=== PATIENT | male | born 1970 | race Caucasian/White ===

== ENCOUNTER 2018-02-25 07:35 | Observation (INO) ==
[2018-02-25] MEDS ORDERED: ASPIRIN PO ONE ×2 (07:49→09:27)
--- NOTE | 2018-02-25 08:12 | Diag Imaging Result Doc PS360 ---
EXAM: CHEST-2 VIEWS HISTORY: chest pain TECHNIQUE: Chest two views COMPARISON: 01/11/2013 FINDINGS: The lungs are well expanded. The heart is not enlarged. The vessels are not distended. There are no infiltrates. No pleural effusions. IMPRESSION: No acute abnormality. Electronically signed by Janusz Salcedo 02/25/2018 8:10 AM
[2018-02-25 08:16] LABS: BASO# 0.04 X1000 (0.0-0.2); BASO% 0.6 % (0.0-0.8); EOS% 2.8 % (0.0-10.0); HEMATOCRIT 48.4 % (42.0-52.0); HEMOGLOBIN 16.5 g/dL (14.0-18.0); IMM GRAN# 0.04 X1000 (0.0-0.04); IMM GRAN% 0.6 % (0.0-0.5); LYMPH# 1.81 X1000 (1.2-3.4); LYMPH% 25.5 % (20.5-51.1); MCH 27.9 PG (27-31); MCHC 34.1 g/dL (33-37); MCV 81.8 FL (81-99); MONO% 8.5 % (1.7-9.3); MPV 13.5 FL (7.4-10.4); NEUT# 4.41 X1000 (1.4-6.5); PLT 118 X1000 (130-400); RBC 5.92 XMIL (4.7-6.1); RDW 13.2 % (11.5-14.5)
[2018-02-25] MEDS ORDERED: LABETALOL IV ONE (08:17)
--- NOTE | 2018-02-25 08:19 | EKG Report ---
Test Performed on : 02/25/2018 07:47:05 AM Test Reason : chest pain Blood Pressure : / mmHG Vent. Rate : 088 BPM Atrial Rate : 088 BPM P-R Int : 164 ms QRS Dur : 086 ms QT Int : 348 ms P-R-T Axes : 051 -11 054 degrees QTc Int : 421 ms Normal sinus rhythm. Possible Left atrial enlargement T wave abnormality, consider anterior ischemia Abnormal ECG When compared with ECG of 25-FEB-2018 07:46, (Unconfirmed) No significant change was found Unconfirmed Result
[2018-02-25 08:31] LABS: PROTIME 11.7 Seconds (11.0-16.0)
[2018-02-25 08:34] LABS: AGAP 13; ALB/GLOB RATIO 2.2; ALBUMIN 4.9 g/dL (3.5-5.0); ALKALINE PHOSPHATASE 90 U/L (32-122); BUN 13 mg/dL (8-22); CALCIUM 9.7 mg/dL (8.8-10.2); CHLORIDE 101 mmol/L (98-107); CK PROFILE 74 U/L (24-204); COSMO 282; CREATININE 0.7 mg/dL (0.7-1.2); ESTIMATED GFR > 60; GLUCOSE 207 mg/dL (70-104); GOT 19 U/L (10-34); GPT 24 U/L (10-44); POTASSIUM 3.9 mmol/L (3.5-5.1); SODIUM 138 mmol/L (136-145); TCO2 24 mmol/L (25-35); TOTAL BILIRUBIN 1.25 mg/dL (0.20-1.00); TOTAL PROTEIN 7.1 g/dL (6.3-8.3)
[2018-02-25 08:36] LABS: INR 0.8
[2018-02-25] MEDS ORDERED: TYLENOL PO PRN (09:40)
[2018-02-25] MEDS ORDERED: NITROGLYCERIN SL PRN (09:40)
[2018-02-25] MEDS ORDERED: LOVENOX SUBQ SCH (09:45)
--- NOTE | 2018-02-25 10:03 | PROVIDER DOCUMENTATION ---
This chart was entered by Aleida Vasquez Scribe, acting as scribe for Sharon Garrido MD. HPI-Chest Pain - General Chief Complaint: Chest Pain Stated Complaint: CP,HIGH BP,DIABETIC Time Seen by Provider: 02/25/18 07:58 Source: patient Allergies/Adverse Reactions: Patient Allergies Allergy/AdvReac Type Severity Reaction Status Date / Time No Known Allergies Allergy Verified 02/25/18 07:45 - History of Present Illness-CP Nature of Presenting Problem: 47 yom presents to the ed with c/o intermittent non radiating chest pain with 2- 3x daily for 10-15 minute episodes and sts notices it most with exertion. pt sts has noted his BP being more elevated and c/o AC Location: reports: substernal Chest Pain Radiation: reports: no radiation Quality of Pain: reports: pressure Severity in ED: moderate Onset/Duration: 1 week ago Timing: gone now Context/Activities at Onset: reports: moderate activity Modifying Factors: worse with: exercise Associated Symptoms: reports: headache. denies: abdominal pain, back pain, dizziness, edema, fatigue, nausea, shortness of breath, vomiting, weakness Nitro Today/Relief: no nitro taken today Aspirin Treatment Today: 325 mg x 1, provided by ED Similar Symptoms Previously?: No Recently Seen Here or By Another Healthcare Provider: No Review of Systems - Adult - REVIEW OF SYSTEMS - ADULT Constitutional: denies: fever, fatique Eyes: reports: no symptoms reported Ears, Nose, Mouth & Throat: reports: no symptoms reported Cardiovascular: reports: see HPI, chest pain. denies: edema, orthopnea, syncope Respiratory: denies: cough, shortness of breath, wheezing Gastrointestinal: denies: abdominal pain, diarrhea, nausea, vomiting Genitourinary: reports: no symptoms reported Musculoskeletal: denies: back pain, neck pain Integumentary: reports: no symptoms reported Neurological: reports: headache/migraines. denies: dizziness/vertigo, loss of balance, numbness, paresthesia, seizure, slurred speech, syncope, tremors Psychiatric: reports: no symptoms reported Endocrine: reports: no symptoms reported Hematologic/Lymphatic: reports: no symptoms reported Allergic/Immunologic: reports: no symptoms reported All Other Systems: Reviewed and Negative Past History - Adult - PAST MEDICAL HISTORY-ADULT Review of Records: reports: Old Records Reviewed, Nursing Assessment Review, Medications Reviewed, Social history reviewed & non-contributory. Major Childhood Illnesses: reports: denies history Cardiovascular: reports: HTN, hyperlipidemia Respiratory: reports: denies history Gastrointestinal: reports: denies history Genitourinary: reports: denies history Musculoskeletal: reports: denies history Neurological: reports: denies history Endocrine/Immune: reports: Diabetes Other Conditions: reports: denies history - PRIOR SURGERIES/PROCEDURES Surgical/Procedure History: reports: none - IMMUNIZATION STATUS Childhood Immunizations: See Nurse Assessment Flu Vaccine: See Nurse Assessment - FAMILY HISTORY Family History: reviewed, not pertinent - SOCIAL HISTORY Smoking: denies Substance Use: denies Alcohol Use Frequency: never Living Situation: family Physical Exam-General - PHYSICAL EXAM-ADULT Initial Vital Signs Reviewed: Yes - CONSTITUTIONAL General Appearance: appears well, alert, no apparent distress - EYES Eyes: PERRL/EOMI, pink conjunctivae - HEAD, EARS, NOSE, MOUTH & THROAT HENMT: moist mucous membranes, normal ENT inspection - NECK Neck: non-tender, full range of motion, supple, normal inspection - RESPIRATORY Respiratory: chest non-tender, lungs clear, normal breath sounds - CARDIOVASCULAR Cardiovascular: normal peripheral pulses, regular rate, rhythm - GASTROINTESTINAL (ABDOMEN) Abdominal Exam: normal bowel sounds, non tender, soft - LYMPHATIC Lymphatic: no adenopathy - MUSCULOSKELETAL Back Exam: normal inspection, no CVA tenderness, no vertebral tenderness Extremity: normal range of motion, non-tender, normal gait - SKIN Integumentary: normal color, normal turgor - NEUROLOGIC Neurologic: grossly normal, no motor/sensory deficits - PSYCHIATRIC Psych/Mental Status: normal mood/affect, normal thought content, normal thought process, oriented x 3 Progress - PLAN OF CARE/RESULTS Progress/Plan/Lab Results: Vital Signs - 8 hr 02/25/18 07:40 02/25/18 07:49 Temperature 99.1 F 98.1 F Pulse Rate 83 67 Respiratory Rate 20 20 Blood Pressure 182/93 155/76 O2 Sat by Pulse Oximetry 100 98 Laboratory Results - last 24 hr 02/25/18 02/25/18 02/25/18 07:55 07:55 07:55 WBC 7.10 RBC 5.92 Hgb 16.5 Hct 48.4 MCV 81.8 MCH 27.9 MCHC 34.1 RDW Std Deviation 13.2 Plt Count 118 L MPV 13.5 H Immature Gran % (Auto) 0.6 H Neut % (Auto) 62.0 Lymph % (Auto) 25.5 [place] % (Auto) 8.5 Eos % (Auto) 2.8 Baso % (Auto) 0.6 Immature Gran # (Auto) 0.04 Neut # (Auto) 4.41 Lymph # (Auto) 1.81 [place] # (Auto) 0.60 H Eos # (Auto) 0.20 Baso # (Auto) 0.04 PT INR PTT (Actin FS) Sodium 138 Potassium 3.9 Chloride 101 Carbon Dioxide 24 L Anion Gap 13 BUN 13 Creatinine 0.7 Estimated GFR/1.73 m2 > 60 BUN/Creatinine Ratio 19 Glucose 207 H Calculated Osmolality 282 Calcium 9.7 Total Bilirubin 1.25 H AST 19 ALT 24 Alkaline Phosphatase 90 Creatine Kinase 74 Troponin T Xmo-I-Yoecerzlblh Pept 246 H Total Protein 7.1 Albumin 4.9 Globulin 2.2 Albumin/Globulin Ratio 2.2 02/25/18 02/25/18 07:55 07:55 WBC RBC Hgb Hct MCV MCH MCHC RDW Std Deviation Plt Count MPV Immature Gran % (Auto) Neut % (Auto) Lymph % (Auto) [place] % (Auto) Eos % (Auto) Baso % (Auto) Immature Gran # (Auto) Neut # (Auto) Lymph # (Auto) [place] # (Auto) Eos # (Auto) Baso # (Auto) PT 11.7 INR 0.80 PTT (Actin FS) 25.0 Sodium Potassium Chloride Carbon Dioxide Anion Gap BUN Creatinine Estimated GFR/1.73 m2 BUN/Creatinine Ratio Glucose Calculated Osmolality Calcium Total Bilirubin AST ALT Alkaline Phosphatase Creatine Kinase Troponin T < 0.010 Yca-R-Bdqufvhozkq Pept Total Protein Albumin Globulin Albumin/Globulin Ratio Orders Category Date Time Status Admit - [facility] Routine AdmDCTranf 02/25/18 09:40 Active Cardiac Monitoring DIRECTED Care 02/25/18 07:49 Active DVT/PE Risk Assess/Protocol [QM] ORDERED Care 02/25/18 09:40 Active FSBS/Accucheck Result AC + HS Care 02/25/18 09:40 Active Notify MD if DIRECTED Care 02/25/18 09:40 Active Nursing- MD Consult Request ROUTINE Care 02/25/18 09:37 Active Oxygen Therapy- ED Nursing DIRECTED Care 02/25/18 07:49 Active Saline Loc NOW Care 02/25/18 07:49 Active Update & Confirm Home Medicati ROUTINE Care 02/25/18 09:44 Active Vital Signs Order Q 4-HR ASSESS Care 02/25/18 09:40 Active Z-Document. for Tele Applied ORDERED Care 02/25/18 09:40 Active Physician/Provider Consults Routine Cons 02/25/18 09:37 Ordered NPO Diet 02/25/18 09:40 Active CHEST-2 VIEWS [RAD] Stat Exams 02/25/18 07:49 Completed US GB < RUQ (LIMITED) [US] Routine Exams 02/25/18 09:43 Ordered A1C HGB W EST AVG GLUCOSE [CHEM] Routine Lab 02/25/18 09:43 Ordered CBC WITH ELECTRONIC DIFF [HEME] Stat Lab 02/25/18 07:55 Completed CBC WITH NO DIFF [HEME] DAILY Lab 02/26/18 06:00 Ordered CBC WITH NO DIFF [HEME] DAILY Lab 02/27/18 06:00 Ordered CBC WITH NO DIFF [HEME] DAILY Lab 02/28/18 06:00 Ordered CBC WITH NO DIFF [HEME] DAILY Lab 03/01/18 06:00 Ordered CBC WITH NO DIFF [HEME] DAILY Lab 03/02/18 06:00 Ordered CK PROFILE [SP CHEM] Q6H Lab 02/25/18 09:45 Ordered CK PROFILE [SP CHEM] Q6H Lab 02/25/18 15:45 Ordered CK PROFILE [SP CHEM] Q6H Lab 02/25/18 21:45 Ordered CK PROFILE [SP CHEM] Stat Lab 02/25/18 07:55 Completed COMPREHENSIVE METABOLIC PANEL [CHEM] DAILY Lab 02/27/18 06:00 Ordered COMPREHENSIVE METABOLIC PANEL [CHEM] DAILY Lab 02/28/18 06:00 Ordered COMPREHENSIVE METABOLIC PANEL [CHEM] DAILY Lab 03/01/18 06:00 Ordered COMPREHENSIVE METABOLIC PANEL [CHEM] Stat Lab 02/25/18 07:55 Completed FOLATE Timed Lab 02/25/18 09:47 Ordered LIPID PROFILE W/CALC LDL [LIPIDS] Routine Lab 02/26/18 06:00 Ordered PRO B-NATRIURETIC PEPTIDE Stat Lab 02/25/18 07:55 Completed PROTIME WITH INR [COAG] Stat Lab 02/25/18 07:55 Completed PTT [COAG] Stat Lab 02/25/18 07:55 Completed TROPONIN T Q6H Lab 02/25/18 09:45 Ordered TROPONIN T Q6H Lab 02/25/18 15:45 Ordered TROPONIN T Q6H Lab 02/25/18 21:45 Ordered TROPONIN T Stat Lab 02/25/18 07:55 Completed TSH Timed Lab 02/25/18 09:47 Ordered VITAMIN B12 Timed Lab 02/25/18 09:47 Ordered Acetaminophen [Tylenol] Med 02/25/18 09:40 Active 650 mg PO Q6H PRN PRN Aspirin Med 02/26/18 09:00 Ordered 325 mg PO DAILY Aspirin Med 02/25/18 07:49 Discontinued 325 mg PO NOW ONE Aspirin Med 02/25/18 09:27 Discontinued 325 mg PO NOW ONE Enoxaparin [Lovenox] Med 02/25/18 09:45 Active 40 mg SUBQ Q24H Labetalol Med 02/25/18 08:17 Discontinued 20 mg IV NOW ONE Nitroglycerin Sl [Nitroglycerin] Med 02/25/18 09:40 Active 0.4 mg SL Q5M PRN PRN CP/SOB/Palp >45 yrs of Age Stat Oth 02/25/18 07:49 Ordered Telemetry [OM.EQ] Routine Oth 02/25/18 09:40 Active EKG [EKG] Stat Ther 02/25/18 07:49 Draft Echo Spec/Color Dop W/O Contra Routine Ther 02/25/18 09:40 Ordered Transfer/Admit Order [TRANSFER] Routine Transfer 02/25/18 09:38 Ordered heart score 5 pt sts had heart work up 3 years prior and all was normal Result Diagrams: 02/25/18 07:55 02/25/18 07:55 - REASSESSMENT Reassessment #1 Time Reassessed: 08:21 (pt on exam was back to baseline) Status: improving - EKG 1 Time of EKG reading by physician:: 07:47 EKG Read and Signed by:: Sharon Jordan EKG Interpretation (*Must complete 3 of following elements*): Abnormal Rate: 88 Rhythm: nsr [place]: normal QRS: normal, other (possible left atrial enlargement) Prior EKG Comparison: no prior EKG Comments: t wave abnormality, consider anrterior ischemia, T wave inversion V2- V4. - XRAY 1 XRAY: Bilateral XRAY Study: Chest (EXAM: CHEST-2 VIEWS HISTORY: chest pain TECHNIQUE: Chest two views COMPARISON: 01/11/2013 FINDINGS: The lungs are well expanded. The heart is not enlarged. The vessels are not distended. There are no infiltrates. No pleural effusions. IMPRESSION: No acute abnormality. Electronically signed by Janusz Salcedo 02/25/2018 8:10 AM 02/25/18 0810 Interpreting Physician: Janusz Salcedo MD Dictated Date/Time: 02/25/18 0809 cc: Shantel Neal MD; Lj Nunez MD) - CONSULTS/PCP/HOSPITALIST Notification #1 *Consult/PCP/Hospitalist*: [facility] dr sood Time Discussed: 08:16 (dr sood sts call his office) Reason/Comments: phone consult #2 Consult: [facility] sood office Time Discussed: 08:34 Reason/Comments: will send an ekg from office by fax #3 Consult: hospitalistdr [place] Time Discussed: 09:16 Reason/Comments: chest pain Consult Disposition: Admit (ACCEPTED.) Departure - Departure Date of Disposition Decision: 02/25/18 Time of Disposition Decision: 09:16 DIAGNOSIS: T wave inversion in EKG Chest pain Qualifiers: Chest pain type: unspecified Qualified Code(s): R07.9 - Chest pain, unspecified Disposition: ADMITTED INPATIENT 09 Certified Medical Emergency: Emergent Condition: Stable Referrals and Follow-Ups: Lj Nunez MD [Primary Care Provider] - - Critical Care Note This patient required my direct & personal management of CC.: No Attestation - Physician/ ANA Attestation Patient care was provided by Advanced Practice Provider:: No The physician spent face to face time with patient:: Yes Advanced Practice Provider documentation review:: Supervising physician onsite and consulted in the evaluation and care of this patient. The physician did have a face to face encounter with the patient. This chart was documented by the indicated scribe, (Aleida Vasquez Scribe) and accurately reflects the services I performed and decisions made by me, Sharon Garrido MD, as attested by the provider's signature.
--- NOTE | 2018-02-25 10:25 | Diag Imaging Result Doc PS360 ---
EXAM: US GB < RUQ (LIMITED) HISTORY: possible cholecystitis TECHNIQUE: Right upper quadrant ultrasound COMPARISON: None. FINDINGS: Normal pancreas. No abdominal aortic aneurysm. Normal inferior vena cava. No focal hepatic abnormality. No ascites in the right upper quadrant. Normal right kidney. No hydronephrosis. Normal gallbladder. No stones. The gallbladder wall is not thickened. No pericholecystic fluid. Common bile duct measures 4 mm. IMPRESSION: Normal right upper quadrant ultrasound. Electronically signed by Janusz Salcedo 02/25/2018 10:21 AM
--- NOTE | 2018-02-25 10:26 | HISTORY AND PHYSICAL ---
PRIMARY CARE PHYSICIAN: Dr. Lj Nunez. CHIEF COMPLAINT: Chest pain. HISTORY OF PRESENT ILLNESS: Mr. Simons is a 47-year-old male with a history of diabetes mellitus type 2, hypertension, hyperlipidemia, and nonobstructive coronary artery disease who presents to the ER with 2 weeks of chest pain. His symptoms are actually somewhat vague. He reports chest pain at random times during the day. However, over the past few days, he has noticed some epigastric midsternal pain after eating and 3 days ago he did have some exertional chest pain, but otherwise the pain comes on at random times, is mid sternal, sometimes wrapping across the entirety of the anterior chest and nonradiating in nature. He describes more of a squeezing-type sensation which is not associated with shortness of breath, nausea, vomiting, or diaphoresis. Mr. Simons does have a history of coronary artery disease. In 2014 , he had a CT of the mediastinum with calcium scoring that showed moderate coronary artery calcification most extensive in the circumflex artery. He also had a stress test at that time which did not show any ischemia. However, when he came into the ER today, he had an EKG which showed T wave inversion in the anterior leads. His chest x-ray and troponins are negative, but given the above, in the future he would need admission for further treatment and evaluation. PAST MEDICAL HISTORY: 1. Coronary artery disease by CT in 2014. 2. Hypertension. 3. Hyperlipidemia. 4. Diabetes mellitus type 2 not requiring insulin. 5. Medical noncompliance. He reports he does not take his medication regularly , he forgets at times. SURGICAL HISTORY: [place] teeth extraction. SOCIAL HISTORY: No tobacco, alcohol, or drug use. He is . FAMILY HISTORY: Significant for coronary artery disease in father, uncle, grandfather. However, no premature coronary artery disease per his report. REVIEW OF SYSTEMS: Fourteen-point review of systems obtained and found to be negative with the exception of the HPI. HOME MEDICATIONS: Not yet reconciled. ALLERGIES: No known drug allergies. PHYSICAL EXAMINATION: VITAL SIGNS: Blood pressure is 155/76, heart rate 67, respiratory rate 20, O2 sat 98% on room air. Temperature is 98.1. GENERAL: Well-developed, well-nourished male lying in a hospital bed in no acute distress. NEUROLOGIC: Awake, alert, and oriented. Follows commands. No focal deficits. HEENT: Head is atraumatic and normocephalic. His pupils are equal, round and reactive to light. Oral mucosa is moist. Trachea is midline. NECK: There is no JVD. CHEST: Clear to auscultation bilaterally. CV: Regular rate and rhythm, S1, S2 noted. There are no murmurs, gallops, clicks, or rubs. GI: Soft, nondistended, nontender. Bowel sounds are active. EXTREMITIES: No edema, clubbing, or cyanosis. Pulses 2+ bilaterally. DIAGNOSTIC DATA: EKG: Normal sinus rhythm with anterior T-wave inversion. Chest x-ray is negative. WBC 7.1, hemoglobin 16.5, hematocrit 48.4, platelet count 118. INR 0.8. Sodium 138, potassium 3.9, chloride 101, CO2 of 24, anion gap 13, BUN 13, creatinine 0.7, glucose 207, calcium 9.7. T-bili 1.25, AST 19, ALT 24, alkaline phosphatase 90. Troponin negative. ProBNP 246. Albumin 4.9. ASSESSMENT AND PLAN: 1. Chest pain: His symptoms are typical in nature, and he does have some EKG changes which could be concerning for anterior ischemia. But, he also does have some postprandial epigastric discomfort and a minor T-bilirubin bump which could indicate gallbladder disease. However, he is not tender on palpation. We will order an echocardiogram, trend his cardiac enzymes, continue with aspirin and p.r.n. nitrates, and consult Cardiology. Will also check an abdominal ultrasound to rule out cholecystitis. 2. Thrombocytopenia: Platelet count 118. There is no history of thrombocytopenia. Will check a B12, a folate, and thyroid function and monitor. Will check a CBC daily and make sure he follows up with PCP. 3. Diabetes mellitus type 2: Check a hemoglobin A1c, add patterned sugars, sliding scale insulin. 4. Hypertension. Will continue his home medications once reconciled. 5. Medical noncompliance: We have advised the patient on the importance of medical adherence. He understands and is going to try to take his medication on a daily basis. 6. DVT prophylaxis with Lovenox. Patient seen and examined by me face to face, all the laboratory, vitals signs and images were reviewed, patient presented with chest pain, and the pain has been presented for probably a couple weeks, he states that is dull some times with some pressure, most of the time not associate with physical activity, he has a history of diabetes and hypertension, but he is noncompliant with his medications, we will consult cardiology immediately, will check troponin and serial EKG, will go to the [facility] unit, physical exam is benign but based on his history this could potentially be an acute coronary syndrome, I agree with the TAIL DOGGER's assessment and plan, Ayush Doe MD. Further recommendations to follow. Dictated by SILVIA Gonzalez for Ayush Rodriguez MD cc: SILVIA Gonzalez MD Luis N. Villanueva, MD Jay Pohl, MD MTDD
[2018-02-25 10:59] LABS: TSH 2.88 uIUmL (0.27-4.20)
[2018-02-25 12:31] LABS: URINE SOURCE CLEAN CATCH
[2018-02-25 12:37] LABS: BILIRUBIN URINE NEGATIVE (NEGATIVE); BLOOD URINE NEGATIVE (NEGATIVE); COLOR STRAW; GLUCOSE URINE >1000 mg/dL (NEGATIVE); KETONE URINE NEGATIVE (NEGATIVE); LEUKOCYTES URINE NEGATIVE (NEGATIVE); NITRITE URINE NEGATIVE (NEGATIVE); PH URINE 6.5; PROTEIN URINE NEGATIVE (NEGATIVE); SP GRAVITY URINE 1.022; TURBIDITY URINE CLEAR (CLEAR); UROBILINOGEN URINE NORMAL (NORMAL)
[2018-02-25 12:39] LABS: UR EPITHELIAL CELLS <10 /HPF (<10); URINE BACTERIA NEGATIVE /HPF; URINE RBC <10 /HPF (<10); URINE WBC <10 /HPF (<10)
[2018-02-25] MEDS ORDERED: HEPARIN 1000 UNITS/NS 2,000 UNIT/1,000 ML IV.SOLN ONE (14:25)
[2018-02-25] MEDS ORDERED: DILAUDID ONE (14:25)
[2018-02-25] MEDS ORDERED: VERSED ONE (14:25)
--- NOTE | 2018-02-25 14:32 | CARDIOLOGY CONSULTATION ---
DATE: 02/25/2018 REASON FOR PRESENTATION: Chest pain. HISTORY OF PRESENT ILLNESS: Mr. Simons is a 47-year-old white male with a history of diabetes, hypertension, hyperlipidemia, with a history of poor medication compliance. In addition he has a history of coronary disease as identified by a calcium score of 215 in 2014. He presented for evaluation of chest pain that has been occurring over the last 1 to 1-1/2 weeks. These episodes would occur anywhere from 2 to 4 times a day. Episodes would last anywhere from around 3 minutes to up to 15 to 20 minutes. Occasionally they were to occur with exertion and sometimes not with exertion. He cannot think of anything that he would do to relieve them. It was described as a pressure like sensation in the mid chest. There was no radiation of the pain. PAST MEDICAL HISTORY: 1. He had coronary disease identified by a calcium score in July of 2014. This showed a total calcium score of 215 that was spread out relatively in the left main, LAD, and circumflex, very minimal in the right coronary. He had a nuclear scan in July of 2014 suggesting apical thinning artifact with a normal EF. There was no ischemia. 2. Hypertension. 3. Hyperlipidemia. 4. Diabetes with some poor compliance. SOCIAL HISTORY: No tobacco, alcohol, or drug use. He is . FAMILY HISTORY: Significant for coronary disease in his father, nothing that seems premature though. REVIEW OF SYSTEMS: A 10-system review of systems is negative except for those things mentioned in the HPI. PHYSICAL EXAMINATION: Vital signs: He is afebrile. His heart rate is 77, blood pressure 139/91. General: He is in no acute distress. HEENT: Oropharynx is moist. Normal dentition. Eye examination shows pink conjunctivae, white sclerae. Neck: Examination shows no obvious thyromegaly or thyroid tenderness. Cardiovascular: He sounds to be in a regular rate and rhythm. He has no obvious murmurs. He has no S3. He has no lower extremity edema. Chest: Exam sounds clear to auscultation bilaterally. He has no increased work of breathing. Abdomen: Soft, nontender, nondistended. He has no obvious organomegaly. Skin Exam: Warm and dry throughout without any rashes. Neurological: He is moving all extremities well. He has no lateralizing deficits. Psychiatric: He is alert, oriented, pleasant. He has normal mood and affect. PERTINENT DATA: His initial EKG shows sinus rhythm. His rate was 88 beats per minute. He does have some new biphasic T-waves in the anterior septal and anterior lateral leads. No Q-waves identified. This appears to be different from his most recent EKG in 2016 in our office. He had an abdominal ultrasound demonstrating a normal study. He had a chest x-ray that was unremarkable. His lab data, white count is 7.1, hematocrit 48, platelet count is 118,000. His INR is 0.8. His sodium is 138, potassium 3.9, BUN 13, creatinine 0.7. T bilirubin 1.25. ProBNP 246. His cardiac enzymes are negative. ASSESSMENT: Mr. Simons is a 47-year-old gentleman with a history of coronary disease, hypertension, hyperlipidemia, and diabetes, who presented with complaints of chest pain. PLAN: I will proceed with a heart catheterization. Risks, benefits, and alternatives have been explained to the patient. He agrees to proceed. He certainly has a history and past medical history that seem consistent with possible unstable angina. He has been dosed with aspirin. He is not having any current pain. We will modify his medications based on his findings on his catheterization. cc: Jensen Sampson MD
[2018-02-25] MEDS ORDERED: NS 1,000 ML ONE (14:41)
[2018-02-25] MEDS ORDERED: ANESTHESIA PB SET 88 IN 5742 ONE (14:41)
[2018-02-25] MEDS ORDERED: CLAVE TWINSITE 32 IN 11959 ONE (14:41)
[2018-02-25] MEDS: LOPRESSOR PO SCH ×2 (16:45→20:50)
--- NOTE | 2018-02-25 19:56 | CARDIAC CATH REPORT ---
PROCEDURE NAME: - INDICATION FOR PROCEDURE: Unstable angina. PROCEDURES PERFORMED: 1. Left heart catheterization. 2. Selective coronary angiography. 3. Left ventriculogram. PROCEDURE IN DETAIL: Mr. Simons was brought to the catheterization laboratory in fasting state. Informed consent was obtained. Prepped in usual fashion. He was anesthetized over the right radial artery after Sam's test proved adequate. A 5-Romanian sheath was placed via true Seldinger technique. Radial cocktail was administered. Catheters were introduced. Hemodynamic measurements were made in the ascending thoracic aorta. Coronary angiography was performed in multiple views using a JL3-5 and an MPA-2 catheter. The left heart catheterization and left ventriculogram was performed using the JR4. At the conclusion of the procedure all sheaths and catheters were removed. TR band was left inflated at 12 mL of air with good capillary refill. Good hemostasis. 90 mL of IV contrast, 5-10 mL of blood loss. No apparent complications. FINDINGS: 1. The left main has mild luminal irregularities. It originates from the left coronary cusp. 2. Left anterior descending seems to originate from the left main. The proximal vessel has mild luminal irregularities leading into a mid vessel with a severe, relatively long 90-95% lesion. This leads into the late mid and distal vessel which have diffuse mild luminal irregularities. There is a moderate sized D1 that has somewhat moderate diffuse disease. There is a small to moderate-sized D2 that appears to have an ostial lesion of around 80 to 90%. 3. Circumflex originates from the left main. The proximal vessel appears to have minimal luminal irregularities. The mid vessel has mild luminal regularities. Distal vessel has a complex long lesion leading into 2 small to moderate size OM's involving severe ostial disease and ostial to proximal disease of these OM type branches. The OM1 appears to have a proximal 70% lesion. 4. Right coronary originates from the right coronary cusp. It has a somewhat vertical takeoff. It is extremely small, nondominant with multiple severe midvessel lesions. 5. Left ventriculogram demonstrates an EF of 65%. Normal wall motion. 6. Aortic blood pressure 123/83 with a mean of 104. 7. Left ventricular pressure of 122/6 with an LVEDP of 10. ASSESSMENT: Mr. Simons is a 47-year-old gentleman with a history of diabetes who presented with unstable angina. PLAN: He appears to have multi-vessel severe coronary disease involving the circumflex territories, left anterior descending as well as right coronary. He has a preserved ejection fraction. He is diabetic. We will try to pursue transfer over to [facility] for consideration for bypass in this patient. In the meantime, we will try to titrate medications. cc: Jensen Sampson MD
[2018-02-25] MEDS ORDERED: LIPITOR PO SCH (21:00)
[2018-02-26] MEDS: LOPRESSOR PO SCH ×4 (01:44→20:35)
[2018-02-26 05:34] LABS: CHOLESTEROL 218 mg/dL (0-200); HDL 44 mg/dL (35-55); LDL 117 mg/dL; TRIGLYCERIDES 287 mg/dL (39-160); VLDL 57 mg/dL
[2018-02-26 06:04] LABS: MCH 28.5 PG (27-31); MCHC 34.1 g/dL (33-37)
[2018-02-26 07:03] LABS: HEMATOCRIT 46.6 % (42.0-52.0); HEMOGLOBIN 15.9 g/dL (14.0-18.0); MCV 83.5 FL (81-99); RBC 5.58 XMIL (4.7-6.1); RDW 13.6 % (11.5-14.5); WBC 8.93 X1000 (4.8-10.8)
--- NOTE | 2018-02-26 08:52 | ECHO REPORT ---
ORDER DATE: 02/25/2018 MEASUREMENTS: Left ventricular end-diastolic diameter 4.0, end-systolic diameter 2.3, septal thickness 1.1, posterior wall thickness 1.1, aortic root 3.1, left atrium 2.9. SUMMARY: 1. Technically difficult study due to limited acoustic window quality. 2. Very mild sclerosis of the aortic valve demonstrated. Aortic valve is not well imaged but is probably trileaflet. Peak gradient across the aortic valve is 10-15 mmHg. Mild thickening of the mitral valve leaflet is demonstrated. Mitral valve opening is adequate. There is trace mitral regurgitation. Tricuspid valve is without evidence of structural abnormality with trace tricuspid regurgitation. Pulmonic valve is not well demonstrated. The aortic root is normal in size. 3. Normal left ventricular chamber size. Borderline concentric left ventricular hypertrophy is demonstrated. Estimated left ventricular ejection fraction appears to be at least 70%. No regional wall motion abnormalities are evident. Doppler suggests grade 1 left ventricular diastolic dysfunction. Left atrium, right atrium and right ventricle are grossly normal in size. 4. No pericardial effusion. 5. Appearance of inferior vena cava suggests normal central venous pressure. cc: MD Richard Garcia CRNP
[2018-02-26] MEDS ORDERED: COZAAR PO SCH (09:00)
[2018-02-26] MEDS ORDERED: ASPIRIN PO SCH ×2 (09:00)
--- NOTE | 2018-02-26 09:12 | PROGRESS NOTE ---
DATE: 02/26/2018 SUBJECTIVE: No acute events overnight. No chest pain. No shortness of breath. OBJECTIVE: Vital Signs: Temperature 98 degrees, pulse 74, respiratory rate 16, blood pressure 127/74, oxygen saturation 98 on room air. HEENT: Head normocephalic. No trauma. PERRLA. Neck: Supple. No JVD. No masses. Central trachea. Chest: Clear to auscultation. No wheezing. No rales. Abdomen: Soft, nontender, nondistended. No hepatosplenomegaly. Extremities: No edema. No clubbing. No cyanosis. Neurological Examination: The patient is alert and oriented x3. No focal neurological deficits. Laboratory: WBC 8.9, hemoglobin 15.9, hematocrit 46.6, platelets 137,000. Triglycerides 287, cholesterol 218. Glucose 120. Pending BMP. ASSESSMENT AND PLAN: 1. Unstable angina, status post cardiac catheterization that showed multivessel severe coronary artery disease involving the circumflex territory, the left anterior descending, as well as right coronary. Preserved ejection fraction around 65%. We will continue with the same medications and the plan is to transfer this patient to [facility] for possible bypass in this patient. 2. Type 2 diabetes, stable. Hemoglobin A1c is 8. Blood sugar controlled. 3. Thrombocytopenia, resolved. 4. Hypertension, stable. He is on losartan and metoprolol at this moment. 5. Deep vein thrombosis prophylaxis with sequential compression devices. cc: Ayush Rodriguez MD
[2018-02-26 09:41] LABS: AGAP 14; BUN 14 mg/dL (8-22); CALCIUM 9.5 mg/dL (8.8-10.2); CHLORIDE 102 mmol/L (98-107); COSMO 278; CREATININE 0.8 mg/dL (0.7-1.2); ESTIMATED GFR > 60; GLUCOSE 130 mg/dL (70-104); POTASSIUM 4.5 mmol/L (3.5-5.1); SODIUM 138 mmol/L (136-145); TCO2 22 mmol/L (25-35)
--- NOTE | 2018-02-26 13:58 | CARDIOLOGY PROGRESS NOTE ---
DATE: 02/26/2018 SUBJECTIVE: Mr. Simons has not had any chest pain. He is having very mild soreness at his right radial catheterization site. PHYSICAL EXAMINATION: Vital Signs: Patient is afebrile. Heart rate 78. Blood pressure 127/74. Generally: No acute distress. Cardiovascular: He sounds to be in a regular rate and rhythm. He has no murmurs, no S3. No lower extremity edema. He has a 2+ right radial pulse. Chest: Clear bilaterally. He has no increased work of breathing. Abdomen: Soft, nontender. PERTINENT DATA: White count is 8.9, hematocrit is 46, platelet count 137. Sodium 138, potassium 4.5, BUN 14, creatinine 0.8. HDL is 44, LDL 117. ASSESSMENT: Mr. Simons is a 47-year-old gentleman with unstable angina who has multi-vessel coronary disease. PLAN: He continues to await transfer to [facility] for bypass evaluation. We will continue him on the metoprolol which I have down titrated to 25 mg b.i.d. based on some relative bradycardia. I have added in losartan 25 mg daily based on his diabetes. He continues on aspirin and I have increased the intensity of his statin to 40 mg at bedtime. He has a preserved ejection fraction. cc: Jensen Sampson MD
[2018-02-26 19:56] VITALS: BP 131/88
[2018-02-26] MEDS ORDERED: CRESTOR PO SCH (21:00)
--- NOTE | 2018-02-27 06:29 | DISCHARGE SUMMARY ---
ADMISSION DATE: 02/25/2018 DISCHARGE DATE: 02/26/2018 DISCHARGE DIAGNOSES: 1. Unstable angina, status post cardiac catheterization with multivessel coronary artery disease. 2. Type 2 diabetes. 3. Thrombocytopenia, resolved. 4. Hypertension. HOSPITAL COURSE: A 47-year-old, male with a past medical history of diabetes, hypertension, dyslipidemia. Presented to the emergency department and admitted on 02/25/2018 due to chest pain that apparently has been going on for the past 2 weeks. His symptoms are actually somewhat vague. He reports chest pain at random times during the day. However, over the past few days, he has noticed some epigastric and midsternal pain after eating. Three days ago, he did have some exertional chest pain but otherwise, the pain comes on at random times, sometimes cramping across the entire anterior chest and nonradiating in nature. He described the pain like a squeezing type sensation which is not associated with shortness of breath, nausea, vomiting, or diaphoresis. Mr. Simons does have a history of coronary artery disease. In 2014, CT scan of the mediastinum with calcium scoring showed moderate coronary artery calcification, most extensive in the circumflex artery. He also had a stress test at that time that did not show any ischemia. However, when he came into the ER yesterday, EKG showed T-wave inversion in the anterior leads. His chest x-ray and troponins were negative but given his current presentation and past medical history, and inclusive his past family history, we decided to admit this patient for further evaluation. Cardiology department examined the patient the same day and they have decided to do a cardiac catheterization since it looks like unstable angina. Cardiac catheterization showed multivessel severe coronary artery disease involving the circumflex territories, left anterior descending, as well as right coronary artery. He has a preserved ejection fraction. He is diabetic so we decided to transfer this patient to [facility] for consideration for bypass in this patient. All the medications were titrated. After the cardiac catheterization, no signs of hematoma or bleeding were evident. Actually, the patient was feeling much better. Laboratory looks good as well except for high triglycerides and cholesterol. He spent the night without any kind of chest pain or shortness of breath, or even any kind of symptoms. Today, he has been accepted and will be transferred to [facility] for further treatment. At the moment of discharge, this patient was tolerating p.o., ambulating, and in stable medical condition. PHYSICAL EXAMINATION: Vital Signs: Temperature 98.2 degrees, pulse 75, respiratory rate 16, blood pressure 119/71, oxygen saturation 100% on room air. HEENT: Head normocephalic. No trauma. PERRLA. Neck: Supple. No JVD. No masses. Central trachea. Chest: Clear to auscultation. No wheezing. No rales. Abdomen: Soft, nontender, nondistended. No hepatosplenomegaly. Extremities: No edema, no clubbing, no cyanosis. Neurological Examination: The patient is alert and oriented x3. No focal deficits. LABORATORY: WBC 8.9, hemoglobin 15.9, hematocrit 46.6, platelets 137,000. Sodium 138, potassium 4.5, chloride 102, bicarbonate 22, BUN 14, creatinine 0.8, glucose 130, calcium 9.5. Triglyceride level 287, cholesterol 218, LDL 117, HDL 44. ASSESSMENT AND PLAN: This patient will be transferred to [facility] for the treatment. All the medications will be provided at the end of this hospitalization, at [facility]. At the moment of discharge, this patient was in a stable medical condition. Time discharging this patient was 30 minutes. cc: Ayush Rodriguez MD
== END 2018-02-26 21:55 | disposition short-term general hospital (02) ==
LOC: ED 07:35 → EDIPHOLD 07:35 → 3S 07:37
PROVIDERS: ATTEND Internal Medicine
CPT/HCPCS: 71020; 71046; 76705; 80048; 80053; 80061; 81001; 82550; 82607; 82746; 82948; 83036; 83880; 84443; 84484; 85025; 85027; 85610; 85730; 93005; 93306; 93458; 96372; 99285; A9270; J1170; J1644; J1650; J2250; J7030; Q9967; XXXXX